=== PATIENT | male | born 1955 | race Caucasian/White ===

== ENCOUNTER 2016-11-28 18:52 | Emergency (ER) | payer OTHER ==
[~2016-11-28] VITALS: Ht 172.7 cm; Wt 115.5 kg
[~2016-11-28 18:52] MED LIST: CHOL200047 PO; CYAN500 PO; LOV100 SUBQ; MULT-1018 PO; POTA10TA7 PO; PYR50 PO; TENO300T2 PO; TRIA1TAB5 PO; USTE45DI SQ; WARF3TAB7 PO; [UNRECOGNIZED DRUG - CODE] PO
[2016-11-28 19:03] VITALS: BP 139/92; RESP 15; O2SAT 95
--- NOTE | 2016-11-28 20:10 | ED.REPORT ---
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 shrimp (Verified Allergy, Unknown, mother said, 11/28/16) Scheduled Cholecalciferol (Vitamin D3) (Vitamin D3) 2,000 Unit Capsule 2,000 UNIT PO DAILY Cyanocobalamin (Vitamin B12) 500 Mcg Tablet 1,000 MCG PO DAILY Enoxaparin (Lovenox) 100 Mg/Ml Syringe 100 MG SUBQ Q12 Fexofenadine/Pseudoephedrine ER (Prema-D 12 Hour) 1 Each Tablet 1 TABLET PO BID Fluticasone Propionate (Fluticasone Propionate Nasal) 16 Gm [place].susp 1 SPRAY NS BID Multivitamin (Multi Vitamin Daily) 1 Each Tablet 1 EACH PO DAILY Potassium Chloride ER (Klor-Con 10) 10 Meq Tablet 10 MEQ PO DAILY Pyridoxine (Vitamin B-6) 50 Mg Tablet 50 MG PO DAILY Tenofovir Disoproxil Fumarate (Viread) 300 Mg Tablet 300 MG PO DAILY Triamterene/HCTZ 75-50 mg (Triamterene/HCTZ 75-50 mg) 1 Each Tablet 1 TABLET PO DAILY Ustekinumab (Stelara) 45 Mg/0.5 Ml Syringe 45 MG SQ q12 week Vitamin E (Vitamin E) 1,000 Unit Capsule 2,000 UNIT PO DAILY Warfarin Sodium (Warfarin Sodium) 3 Mg Tablet 3 MG PO DAILY General Time Seen by MD: 19:40 Chief Complaint Ear problem right ear feel plugged, no recent URI or allergies Hx Obtained From: Patient, Spouse Arrived By: Walk-in Onset Occurred: Yesterday Context of Onset: Q-tip usage Symptom Duration: Since onset Location: : Ear canal Quality: Same as prior Severity: Current: No pain currently Severity: Maximum: Mild Associated with: Denies: Cough, Fever, Headache, Hearing loss, Itching, Nausea , Neck pain, Rhinorrhea, Sore throat, URI symptoms Pertinent Negative: Pt denies other symptoms Pertinent Negative: Exacerbated by nothing, Relieved by nothing Recent Healthcare: No recent doctor visit Similar Sx Previous: Yes Past Medical History Past Medical History Reports: Hypertension Past Surgical History Bilateral knee replacements Plastic surgery for ear rhinoplasty Kidney surgery Smoking History Former Smoker Social History Drug Use: Denies drug use Other Social History: , Local resident Ambulatory Status Independent Review of Systems Basic Review of Systems Eyes: Vision NL, No discharge Respiratory: No shortness of breath, No cough, No wheeze Cardiovascular: No chest pain, No dyspnea on exertion, No orthopnea, No parox noct dyspnea, No palpitations GI: No abdominal pain, No anorexia, No nausea, No vomiting : No dysuria, No frequency Musculoskeletal: No extremity swelling, No extremity pain, Full range of motion , Joints NL Hematologic: No bleeding, No bruising Endocrine: No cold intolerance, No heat intolerance, No weight gain, No weight loss Skin: No bruising, No rash, No itch Allergy / Immune: No allergy Neurologic: NL mental status, No weakness, No numbness Psychiatric: Normal thought content Constitutional: Denies: Fatigue, Fever Ears / Nose / Throat: Reports: Earache right, Denies: Ear drainage bilateral, Ear ringing bilateral, Hearing loss bilateral , Nasal congestion, Sinus problem, Throat pain Complete sys rev & neg: except as marked. Physical Exam Initial Vital Signs Vital Signs (First) Date Time Temp Pulse Resp B/P Pulse Ox O2 Delivery O2 Flow Rate FiO2 11/28/16 19:03 36.6 73 15 139/92 95 Room Air Initial VS: Reviewed Head / Eyes: Atraumatic, Normocephalic, PERRL Neck: Supple, Non-tender, Full range of motion Respiratory: No respiratory distress Abdomen / GI: No distention Lymphatic: No lymphadenopathy Extremities: Vascular intact, Neuro intact, No swelling, No tenderness Skin: Warm, Dry, No cyanosis Neurologic: Alert, Oriented, Nonfocal Psychiatric: Mood/affect normal, Behavior normal, Normal thought content General/Constitutional: Awake, Alert, No acute distress ENT: Atraumatic, Airway patent, Mucous membranes moist, Pharynx NL, Nose exam NL Right Ear / Mastoid: Positive: Fluid behind TM clear (bulging) Discharge & Departure Primary Impression: Dysfunction of right eustachian tube Disposition: Home Discharge Condition All VS Reviewed: Yes Patient Instructions: Earache (ED) Additional Instructions: You have fluid in your middle ear. This is from a closed up eustation tube. It can occur with colds and allergies or when you have changes in altitude such as flying or driving over [place] passes. Use the medication as prescribed. This should help with the symptoms. Follow up with your regular doctor or return to the ER for any other concerns. Referrals: Raffaele Resendez MD (PCP) EDSupervising Provider for APC: Cory Calderon Lora L ARNP Nov 28, 2016 20:10
[2016-11-28] MEDS ORDERED: FLUT16SP NS (20:11)
[2016-11-28] MEDS ORDERED: FEXO1TAB4 PO (20:11)
== END 2016-11-28 20:31 | disposition home or self-care (01) ==
LOC: SED 18:52
DX: H69.91 Unspecified Eustachian tube disorder, right ear (principal); I10 Essential (primary) hypertension; Z98.890 Other specified postprocedural states; Z79.01 Long term (current) use of anticoagulants; Z87.891 Personal history of nicotine dependence; Z88.0 Allergy status to penicillin; Z91.013 Allergy to seafood

== ENCOUNTER 2016-12-09 06:07 | Emergency (ER) | payer OTHER ==
[~2016-12-09] VITALS: Ht 175.3 cm; Wt 117.3 kg
[~2016-12-09 06:07] MED LIST changes: +FEXO1TAB4 PO; +FLUT16SP NS
[2016-12-09 06:09] VITALS: BP 164/94; PULSE 84; RESP 16; O2SAT 97
--- NOTE | 2016-12-09 06:28 | ED.REPORT ---
HPI-Facial Injury Date of Service Dec 09, 2016 ED Provider: Elías Weber MD The patient is a 61 year old male with history of transverse myelitis, who presents to the emergency department complaining of a facial laceration that occurred just prior to arrival. The patient states he tripped and fell into his dresser hitting his lip on the corner. He did not lose consciousness. He denies any other injuries or trauma. His tetanus is not up to date. 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 shrimp (Verified Allergy, Unknown, mother said, 12/09/16) Scheduled Cholecalciferol (Vitamin D3) (Vitamin D3) 2,000 Unit Capsule 2,000 UNIT PO DAILY Cyanocobalamin (Vitamin B12) 500 Mcg Tablet 1,000 MCG PO DAILY Enoxaparin (Lovenox) 100 Mg/Ml Syringe 100 MG SUBQ Q12 Fexofenadine/Pseudoephedrine ER (Prema-D 12 Hour) 1 Each Tablet 1 TABLET PO BID Fluticasone Propionate (Fluticasone Propionate Nasal) 16 Gm Guy.susp 1 SPRAY NS BID Multivitamin (Multi Vitamin Daily) 1 Each Tablet 1 EACH PO DAILY Potassium Chloride ER (Klor-Con 10) 10 Meq Tablet 10 MEQ PO DAILY Pyridoxine (Vitamin B-6) 50 Mg Tablet 50 MG PO DAILY Tenofovir Disoproxil Fumarate (Viread) 300 Mg Tablet 300 MG PO DAILY Triamterene/HCTZ 75-50 mg (Triamterene/HCTZ 75-50 mg) 1 Each Tablet 1 TABLET PO DAILY Ustekinumab (Stelara) 45 Mg/0.5 Ml Syringe 45 MG SQ q12 week Vitamin E (Vitamin E) 1,000 Unit Capsule 2,000 UNIT PO DAILY Warfarin Sodium (Warfarin Sodium) 3 Mg Tablet 3 MG PO DAILY General Time Seen by Provider: 06:25 Chief Complaint Laceration Hx Obtained From: Patient Arrived By: Walk-in Onset Occurred: Just prior to arrival Symptom Duration: Since onset Progression Since Onset: Constant Caused by: Fall Location: : Lip lower Quality: Painful Severity: Current: Mild Severity: Maximum: Mild Immunizations: Tetanus not up to date Recent Healthcare: No recent doctor visit, No recent hospitalization Similar Sx Previous: No Past Medical History Past Medical History Transverse myelitis in 2004 Reports: Hypertension Past Surgical History Bilateral knee replacements Plastic surgery for ear Rhinoplasty Kidney surgery Family History Noncontributory Smoking History Former Smoker Social History Drug Use: Denies drug use Other Social History: , Local resident Ambulatory Status Independent Review of Systems Review of Systems Note: +lip laceration Musculoskeletal: Denies: Back pain, Extremity pain, Neck pain Neurologic: Denies: Change LOC, Headache, Syncope Complete sys rev & neg: except as marked. Physical Exam Initial Vital Signs Vital Signs (First) Date Time Temp Pulse Resp B/P Pulse Ox O2 Delivery O2 Flow Rate FiO2 12/09/16 06:09 36.4 84 16 164/94 97 Room Air Initial VS: Reviewed General/Constitutional: Well-developed, Well-nourished Respiratory: Breath sounds normal, Clear to auscultation, No respiratory distress Cardiovascular: Regular rate & rhythm, Heart sounds normal, Intact distal pulses Abdomen / GI: Soft, Non-tender, No guarding, No rebound, No distention Lymphatic: No lymphadenopathy Extremities: Vascular intact, Neuro intact, No swelling, No tenderness Skin: Warm, Dry, No cyanosis Psychiatric: Mood/affect normal, Behavior normal, Normal thought content Head / Eyes: Atraumatic, Normocephalic, PERRL, EOMI ENT: Airway patent, Mucous membranes moist He has a laceration with a total wound length of 3.5 cm to his left lower lip. It does go across the vermilion border. Neck: Atraumatic, Supple, Full range of motion, Non-tender, No midline vertebral tend Neurologic: Oriented X3, Speech NL, No motor deficits, No sensory deficits, CN II - XII intact, Cerebellar NL, Memory NL Procedures Laceration Management Laceration Management: Multiple flaps were aligned. It does go across the vermilion border. The total wound length is 3.5 cm. Time: 07:18 Procedure Performed by: ED physician Consent / Setup / Site Prep: Consent from patient Location of Wound: left lower lip Local Anesthesia: Lidocaine w epi 1% Digital Block: No Wound Preparation: Normal saline Debridement: None Irrigation: Copious Foreign Body Explore / Removal: Explored for foreign body Undermining / Margins: Flaps aligned (multiple flaps) Repair Skin: Nylon (4-0) # Sutures - Skin: 5 Closure Layers: 1 Post-Procedure / Complications: Antibiotic oint applied, Dressing applied, No complications, Condition improved, Tolerated procedure well, Patient stable Re-Eval/Medical Decision Source of Hx: Old records Re-Evaluation/Progress : Time of Eval: 07:32 Re-Evaluation/Progress Note: Discussed plan for discharge. All questions were addressed. Counseled Regarding: Diagnosis, Need for follow-up, When/why to return to ED Discharge & Departure Impression: Primary Impression: Laceration of lower lip Encounter type: initial encounter Qualified Code: S01.511A - Laceration without foreign body of lip, initial encounter Disposition: Home Discharge Condition All VS Reviewed: Yes Condition: Stable Patient Instructions: Laceration (ED) Additional Instructions: Thank you for entrusting us with your care today. Keep the area covered with antibiotic ointment and a bandage. You will need to have the sutures removed in 6 days. You can have them removed by your regular doctor, at urgent care, or in the emergency department. If you come to the emergency department I recommend calling before hand to see the wait time, mornings are usually less busy. You were given a tetanus vaccination in the emergency department today. Seek care for any sign of infection: increased pain, redness or swelling, fevers, chills, vomiting, or any other new or concerning symptoms. This laceration is a complex laceration involving the "vermilion border" which is the line of the lip skin transitioning to the normal facial skin. There is also piece of skin missing making the closure extremely difficult and complex. I have done my best to close this wound in a cosmetically acceptable fashion. To minimize scarring and deformity, I recommend antibiotic ointment daily as described above until the sutures come out. Then I recommend Mederma with SPF 15 or higher twice daily for a year to improve scar appearance. Referrals: Raffaele Resendez MD (PCP) Scribe Attestation Portions of this note were transcribed by Carlota Brown. I, Dr. Weber personally performed the history, physical exam and medical decision-making; I reviewed and confirmed the accuracy of the information in the transcribed note. Signed by: Dottie Martinez, 12/09/2016 at 0745. copies to: Raffaele Resendez MD, Kirk H MD Dec 09, 2016 06:28 Carlota Brown Dec 09, 2016 06:30
[2016-12-09] MEDS ORDERED: TdaP Vaccine 0.5 mL Inj IM ONE (07:33)
== END 2016-12-09 07:55 | disposition home or self-care (01) ==
LOC: SED 06:09
DX: S01.511A Laceration without foreign body of lip, initial encounter (principal); W01.190A Fall on same level from slipping, tripping and stumbling with subsequent striking against furniture, initial encounter; Y92.9 Unspecified place or not applicable; Y93.89 Activity, other specified; Y99.8 Other external cause status; I10 Essential (primary) hypertension; Z86.69 Personal history of other diseases of the nervous system and sense organs; Z87.891 Personal history of nicotine dependence; Z23 Encounter for immunization; Z79.01 Long term (current) use of anticoagulants; Z88.0 Allergy status to penicillin